=== PATIENT | female | born 1985 | race Caucasian/White ===

== ENCOUNTER 2016-06-19 02:16 | Emergency (ER) | payer MEDICAID ==
[2016-06-19 02:46] VITALS: O2SAT 100
[2016-06-19] MEDS ORDERED: Sodium Chloride 0.9% 1,000 ML IV STA (04:01)
[2016-06-19] MEDS ORDERED: Belladonna-Phenobarbital PO STA (04:01)
[2016-06-19] MEDS ORDERED: Belladonna-Phenobarbital ONE (04:33)
[2016-06-19] MEDS ORDERED: Sodium Chloride 0.9% 1,000 ML ONE ×2 (04:34→04:54)
[2016-06-19 04:49] LABS: CHLORIDE 102 mmol/L (98-107); HEMATOCRIT 38.2 % (34.0-47.0)
[2016-06-19 04:50] LABS: POTASSIUM 3.8 mmol/L (3.6-5.2); SODIUM 137 mmol/L (132-148)
[2016-06-19 04:52] LABS: ALB/GLOB RATIO 1.1 (1.0-2.1); ALKALINE PHOSPHATASE 52 U/L (38-126); AST/SGOT 14 U/L (14-36); BILIRUBIN,TOTAL 0.4 mg/dL (0.2-1.3); CARBON DIOXIDE 24 mmol/L (22-30); GFR AFRICAN-AMERICAN > 60; TOTAL PROTEIN 7.6 g/dL (6.3-8.3)
[2016-06-19 04:53] LABS: ALT/SGPT 24 U/L (9-52); BASO # 0.1 K/uL (0.0-0.2); BASO % 0.4 % (0.0-2.0); BLOOD UREA NITROGEN 10 mg/dL (7-17); CALCIUM 8.6 mg/dl (8.6-10.4); EOS % 0.1 % (0.0-4.0); GLUCOSE,RANDOM 124 mg/dL (65-105); LYMPH # 1.3 K/uL (1.0-4.3); LYMPH % 8.9 % (20.0-40.0); MEAN CELL VOLUME 89.6 fL (81.0-99.0); MEAN CORPUSCULAR HEMOGLOBIN 29.7 pg (27.0-31.0); MEAN CORPUSCULAR HGB CONC 33.2 g/dL (33.0-37.0); MEAN PLATELET VOLUME 9.9 fL (7.2-11.7); MONO # 0.5 K/uL (0.0-0.8); MONO % 3.6 % (0.0-10.0); PLATELET COUNT 354 K/uL (130-400); WHITE BLOOD COUNT 14.1 K/uL (4.8-10.8)
[2016-06-19] MEDS ORDERED: Morphine 4 MG/ML VIAL ONE (04:54)
[2016-06-19 04:57] LABS: RBC URINE 2 /hpf (0-3); URINE BACTERIA RARE (<OCC); URINE BILIRUBIN NEGATIVE (NEGATIVE); URINE BLOOD NEGATIVE (NEGATIVE); URINE COLOR Yellow (YELLOW); URINE GLUCOSE (UA) NORMAL (Normal); URINE KETONE 1+ mg/dL (NEGATIVE); URINE LEUKOCYTE ESTERASE NEG Leu/uL (Negative); URINE PROTEIN 1+ mg/dL (NEGATIVE); URINE UROBILINOGEN NORMAL mg/dL (0.2-1.0); WBC CLUMPS FEW /hpf; WBC URINE 1 /hpf (0-5)
--- NOTE | 2016-06-19 05:35 | C.PDOC ---
History Of Present Illness Patient is 31 year old female who presents to the ER with a complaint of periumbilical pain. Patient states she had episodes of vomiting and diarrhea prior to arrival. Denies any shortness of breath, chest pain or fever. Time Seen by Provider: 06/19/16 02:48 Chief Complaint (Nursing): Abdominal Pain History Per: Patient History/Exam Limitations: no limitations Onset/Duration Of Symptoms: Hrs Current Symptoms Are (Timing): Still Present Location Of Pain/Discomfort: Periumbilical Associated Symptoms: Vomiting, Diarrhea. denies: Fever, Chills, Chest Pain Past Medical History Reviewed: Historical Data, Nursing Documentation, Vital Signs Vital Signs: Last Vital Signs Temp 97.7 F 06/19/16 02:44 Pulse 75 06/19/16 04:58 Resp 20 06/19/16 04:58 BP 115/79 06/19/16 04:58 Pulse Ox 100 06/19/16 05:42 Family History: States: Unknown Family Hx - Social History Hx Alcohol Use: No Hx Substance Use: No - Immunization History Hx Influenza Vaccination: No Review Of Systems Except As Marked, All Systems Reviewed And Found Negative. Constitutional: Negative for: Fever, Chills Cardiovascular: Negative for: Chest Pain, Palpitations Respiratory: Negative for: Cough, Shortness of Breath Gastrointestinal: Positive for: Vomiting, Abdominal Pain (periumbilical), Diarrhea. Negative for: Nausea Physical Exam - Physical Exam Appears: Non-toxic Skin: Normal Color, Warm, Dry Head: Atraumatic, Normacephalic Oral Mucosa: Moist Chest: Symmetrical Cardiovascular: Rhythm Regular Respiratory: Normal Breath Sounds, No Rales, No Rhonchi, No Wheezing Gastrointestinal/Abdominal: Soft, Tenderness (Epigastric and right upper quadrant), No Distention, No Guarding, No Rebound Neurological/Psych: Oriented x3, Normal Speech, Normal Cognition ED Course And Treatment - Laboratory Results Result Diagrams: 06/19/16 04:44 06/19/16 04:44 O2 Sat by Pulse Oximetry: 100 (Room air) Pulse Ox Interpretation: Normal - CT Scan/US RUQ US Other Rad Studies (CT/US): Read By Radiologist, Radiology Report Reviewed CT/US Interpretation: EXAM: US Abdomen Limited, Right Upper Quadrant. CLINICAL HISTORY: 31 years old, female; Pain; Other: Ruq; Additional info: Epigastric and ruq abd pain. TECHNIQUE: Real-time ultrasound of the right upper quadrant with image documentation. COMPARISON: No relevant prior studies available. FINDINGS: Liver: Normal echogenicity. No mass. No intrahepatic bile duct dilatation. Gallbladder: No gallstones. No wall thickening. No pericholecystic fluid. No sonographic Thapa's. sign. Common bile duct: No dilatation. No stones. Pancreas: Unremarkable as visualized. Right kidney: Normal echogenicity. No hydronephrosis. IMPRESSION: 1. No acute findings. 2. Non-acute findings are described above. Thank you for allowing us to participate in the care of your patient. Dictated and Authenticated by: Mitchell Don MD Progress Note: Blood work and abdomen ultrasound ordered. Morphine IVP, IV fluids, Protonix IVP, Zofran PO, and PO. On re-evaluation patient feels better, tolerates po and is stable to be d/c home. Disposition - Disposition Referrals: FAMILY PROVIDER,NO [Primary Care Provider] - [facility] [Outside] [facility] [Outside] Disposition: HOME/ ROUTINE Disposition Time: 06:52 Condition: IMPROVED Additional Instructions: Follow up in Clinic within 1-2 days. Return to Ed if feel worse. Prescriptions: Dicyclomine [Bentyl] 20 mg PO TID #30 tab Famotidine [Pepcid] 20 mg PO BID #20 tab Ondansetron ODT [Zofran ODT] 4 mg PO .Q4-6H PRN #20 odt PRN Reason: Nausea/Vomiting Instructions: Gastroenteritis (ED) Forms: Work Excuse Print Language: OCCITAN - Clinical Impression Clinical Impression: Gastroenteritis - Scribe Statement The provider has reviewed the documentation as recorded by the Scribe Arslan Tomas All medical record entries made by the Scribe were at my direction and personally dictated by me. I have reviewed the chart and agree that the record accurately reflects my personal performance of the history, physical exam, medical decision making, and the department course for this patient. I have also personally directed, reviewed, and agree with the discharge instructions and disposition.
[2016-06-19 06:30] LABS: NEUTROPHIL 79 % (50-75); TOTAL CELLS COUNTED 100
--- NOTE | 2016-06-19 06:41 | US ---
EXAM: US Abdomen Limited, Right Upper Quadrant CLINICAL HISTORY: 31 years old, female; Pain; Other: Ruq; Additional info: Epigastric and ruq abd pain TECHNIQUE: Real-time ultrasound of the right upper quadrant with image documentation. COMPARISON: No relevant prior studies available. FINDINGS: Liver: Normal echogenicity. No mass. No intrahepatic bile duct dilatation. Gallbladder: No gallstones. No wall thickening. No pericholecystic fluid. No sonographic Thapa's sign. Common bile duct: No dilatation. No stones. Pancreas: Unremarkable as visualized. Right kidney: Normal echogenicity. No hydronephrosis. IMPRESSION: 1.No acute findings. 2.Non-acute findings are described above.
[2016-06-19 07:08] VITALS: BP 100/65; PULSE 81; RESP 18; TEMP 98
== END 2016-06-19 07:09 | disposition home or self-care (01) ==
LOC: C.ER 02:16 → SUPCPDRO 02:16 → C.ER 07:09
DX: K52.9 Noninfective gastroenteritis and colitis, unspecified (principal)
CPT/HCPCS: 76705; 80053; 81001; 83690; 84703; 85025; 96374; 96375; 99285; C9113; J2270; J2405; J7040

== ENCOUNTER 2016-07-14 12:04 | Emergency (ER) | payer MEDICAID ==
[2016-07-14 12:15] VITALS: BP 108/71; PULSE 89; RESP 18; TEMP 97.8; O2SAT 100
--- NOTE | 2016-07-14 12:50 | C.PDOC ---
History Of Present Illness 31 year old patient presents to the ED complaining of left ear pain for a couple of days. Patient states she has a clogged and fullness sensation in the ear. Patient denies fever, ear discharge, headache, dizziness, nausea or vomiting. Time Seen by Provider: 07/14/16 12:28 Chief Complaint (Nursing): ENT Problem History Per: Patient History/Exam Limitations: None Onset/Duration Of Symptoms: Days (couple) Current Symptoms Are (Timing): Still Present Quality (Ear): Pain W/Touch Symptoms Have Been: Continuous Severity: Mild Pain Scale Rating Of: 3 Past Medical History Reviewed: Historical Data, Nursing Documentation, Vital Signs Vital Signs: Last Vital Signs Temp 97.8 F 07/14/16 12:14 Pulse 89 07/14/16 12:14 Resp 18 07/14/16 12:14 BP 108/71 07/14/16 12:14 Pulse Ox 100 07/14/16 17:41 Family History: States: Unknown Family Hx - Social History Hx Alcohol Use: No Hx Substance Use: No - Immunization History Hx Influenza Vaccination: No Review Of Systems Except As Marked, All Systems Reviewed And Found Negative. Constitutional: Negative for: Fever ENT: Positive for: Ear Pain (left). Negative for: Ear Discharge Gastrointestinal: Negative for: Nausea, Vomiting Neurological: Negative for: Headache, Dizziness Physical Exam - Physical Exam Appears: Non-toxic, No Acute Distress Skin: Warm, Dry Head: Atraumatic, Normacephalic Eye(s): bilateral: Normal Inspection, EOMI Ear(s): Left: TM Obscured By Wax, Other (excessive cerumen (-)impaction), Right : Normal Nose: Normal Oral Mucosa: Moist Throat: Normal, No Erythema, No Exudate Neck: Normal ROM, Supple Cardiovascular: Rhythm Regular Respiratory: Normal Breath Sounds, No Rales, No Rhonchi, No Wheezing Extremity: Normal ROM Neurological/Psych: Oriented x3, Normal Speech Gait: Steady ED Course And Treatment O2 Sat by Pulse Oximetry: 100 (room air) Pulse Ox Interpretation: Normal Medical Decision Making Medical Decision Making: Impression: 31 y/o female with left ear fullness. Exam shows excessive cerumen, no impaction. Will discharge with ear drops Advise followup with ENT or return to ER for any persistent symptoms Disposition Counseled Patient/Family Regarding: Need For Followup - Disposition Referrals: Miguel Ángel Wolfe MD [Staff Provider] - [facility] [Outside] [facility] [Outside] Disposition: HOME/ ROUTINE Disposition Time: 12:46 Condition: STABLE Additional Instructions: Aplique 10 gotas diariamente en el odo afectado Seguimiento en 2-3 zaidi con ORL o regreso para reevaluacin Prescriptions: Carbamide Peroxide [Debrox 15 Ml] 10 drop OS BID #1 bottle Instructions: Cerumen Impaction (ED) Print Language: GABONESE - POA Present On Arrival: None - Clinical Impression Clinical Impression: Excessive cerumen in left ear canal - PA / DIRECTOR DRUG / Resident Statement MD/DO has reviewed & agrees with the documentation as recorded. - Scribe Statement The provider has reviewed the documentation as recorded by the Scribe Chantel Rene All medical record entries made by the Scribe were at my direction and personally dictated by me. I have reviewed the chart and agree that the record accurately reflects my personal performance of the history, physical exam, medical decision making, and the department course for this patient. I have also personally directed, reviewed, and agree with the discharge instructions and disposition.
== END 2016-07-14 12:57 | disposition home or self-care (01) ==
LOC: C.ER 12:04
DX: H61.22 Impacted cerumen, left ear (principal)